=== PATIENT | female | born 2000 | race Asian ===

== ENCOUNTER 2022-06-18 20:02 | Emergency (ER) | payer SELFPAY ==
[~2022-06-18] VITALS: Ht 172.7 cm; Wt 59.0 kg
[2022-06-18 20:20] VITALS: BP 108/62
[2022-06-18] MEDS ORDERED: diphenhydrAMINE HCL 50 MG/ML VIAL ONE (20:42)
[2022-06-18] MEDS ORDERED: METOCLOPRAMIDE HCL 10 MG TABLET ONE (20:42)
[2022-06-18] MEDS ORDERED: KETOROLAC TROMETHAMINE INJ 30 MG/ML VIAL ONE (20:42)
[2022-06-18] MEDS ORDERED: ASPI-966 PO (20:43)
[2022-06-18] MEDS ORDERED: diphenhydrAMINE HCL 50 MG/ML VIAL IM ONE (21:00)
[2022-06-18] MEDS ORDERED: KETOROLAC TROMETHAMINE INJ 30 MG/ML VIAL IM ONE (21:00)
[2022-06-18] MEDS ORDERED: METOCLOPRAMIDE HCL 10 MG TABLET PO ONE (21:00)
== END 2022-06-18 20:55 | disposition home or self-care (01) ==
LOC: ER 20:09
DX: G43.909 Migraine, unspecified, not intractable, without status migrainosus (principal); Z79.82 Long term (current) use of aspirin
CPT/HCPCS: 99284; 96372 ×2; J1200; J8597; J1885